=== PATIENT | male | born 1980 | race Caucasian/White ===

== ENCOUNTER 2023-07-31 18:47 | Emergency (ER) | payer BC ==
[2023-07-31 18:49] VITALS: TEMP 97.8
[2023-07-31] MEDS: HYDROcodone/acetaminophen 5mg/325mg tablet PO ONE (19:16)
[2023-07-31] MEDS ORDERED: SILV20CR13 TOP (19:18)
[2023-07-31] MEDS ORDERED: HYDR-3965 PO (19:31)
[2023-07-31] MEDS: tetanus & diphtheria toxoid (Td) vaccine 0.5ml IMVAC ONE (19:55)
[2023-07-31] MEDS: silver sulfadiazine cream 50gm TP ONE (19:55)
[2023-07-31 19:59] VITALS: BP 146/92; PULSE 96; RESP 20; O2SAT 100
== END 2023-07-31 20:13 | disposition home or self-care (01) ==
LOC: ER 18:48
DX: T24.202A Burn of second degree of unspecified site of left lower limb, except ankle and foot, initial encounter (principal); Z88.1 Allergy status to other antibiotic agents; Z88.0 Allergy status to penicillin; Z79.899 Other long term (current) drug therapy
CPT/HCPCS: 16020; 90471; 90715; 99283

== ENCOUNTER 2024-08-06 08:52 | Emergency (ER) | payer BC ==
[~2024-08-06] VITALS: Ht 188 cm; Wt 106.0 kg
[~2024-08-06 08:52] MED LIST: SILV20CR13 TOP
[2024-08-06 08:53] VITALS: BP 169/93; PULSE 94; TEMP 99.1; O2SAT 98
[2024-08-06 09:53] VITALS: RESP 16
[2024-08-06] MEDS: ketorolac trometh 15mg/ml vial 15 MG/ML ML IM ONE (09:53)
== END 2024-08-06 10:10 | disposition home or self-care (01) ==
LOC: ER 08:52
DX: M79.642 Pain in left hand (principal); Z88.0 Allergy status to penicillin; Z88.1 Allergy status to other antibiotic agents
CPT/HCPCS: 73130; 96372; 99283; J1885; A6449